=== PATIENT | female | born 1980 | race Caucasian/White ===

== ENCOUNTER 2020-01-07 19:50 | Emergency (ER) | payer SELFPAY ==
[~2020-01-07] VITALS: Ht 170.2 cm; Wt 99.0 kg
[2020-01-08 02:59] VITALS: BP 136/76
== END 2020-01-07 23:28 | disposition home or self-care (01) ==
LOC: ER 19:50
DX: F41.9 Anxiety disorder, unspecified (principal); Z59.0 Homelessness; Z88.0 Allergy status to penicillin
CPT/HCPCS: 81025; 99283